=== PATIENT | male | born 1985 | race Caucasian/White ===

== ENCOUNTER 2017-04-07 13:58 | Inpatient (IN) | payer BC, OTHER ==
[~2017-04-07] VITALS: Ht 182.9 cm; Wt 106.6 kg
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
[2017-04-07 15:00] VITALS: BP 145/76
[2017-04-07] MEDS ORDERED: ONDANSETRON 4 MG/2 ML VIAL IM PRN (15:00)
[2017-04-07] MEDS ORDERED: MAG HYDROX/AL HYDROX/SIMETH 30 ML LIQUID UDC PO PRN (15:00)
[2017-04-07] MEDS ORDERED: MIRALAX 17 GM POWD.PACK PO PRN (15:00)
[2017-04-07] MEDS ORDERED: DICYCLOMINE HCL 20 MG TABLET PO PRN (15:00)
[2017-04-07] MEDS ORDERED: LORAZEPAM 2 MG/1 ML VIAL IM PRN (15:00)
[2017-04-07] MEDS ORDERED: LORAZEPAM 1 MG TABLET PO PRN ×2 (15:00)
[2017-04-07] MEDS ORDERED: IBUPROFEN 400 MG TABLET PO PRN (15:00)
[2017-04-07] MEDS ORDERED: diphenhydrAMINE 50 MG CAPSULE PO PRN (15:00)
[2017-04-07] MEDS ORDERED: LOPERAMIDE HCL 2 MG CAPSULE PO PRN ×2 (15:00)
[2017-04-07] MEDS ORDERED: ACETAMINOPHEN 325 MG TABLET PO PRN (15:00)
[2017-04-07] MEDS ORDERED: MAGNESIUM HYDROXIDE 30 ML LIQUID UDC PO PRN (15:00)
[2017-04-07] MEDS ORDERED: ONDANSETRON ODT 4 MG TAB.RAPDIS SL PRN (15:00)
[2017-04-07] MEDS ORDERED: THIAMINE HCL 200 MG/2 ML VIAL IM ONE (15:38)
[2017-04-07 15:54] LABS: *AMPHETAMINE, URINE NEGATIVE (NEGATIVE); *BARBITURATE, URINE NEGATIVE (NEGATIVE); *CANNABINOID, URINE POSITIVE (NEGATIVE); *COCCAINE, URINE NEGATIVE (NEGATIVE); *OPIATE, URINE NEGATIVE (NEGATIVE); *PHENCYCLIDINE SCREEN,URINE NEGATIVE (NEGATIVE)
--- NOTE | 2017-04-07 16:00 | NUR ---
ADMISSION PATIENT IN ROOM 310, VS, SKIN INTACT, STABLE CIWA 6 PATIENT HERE TO DETOX FROM ALCOHOL AND MARIJUANA. UDS OBTAINED AND SENT TO LAB, BLOOD SENT TO LAB. PATIENT COMPLIANT, INSTRUCTED ON RULES OF THE FLOOR , PATIENT STATED UNDERSTANDING BUT WILL NEED REINFORCEMENT HE FORGETS VERY QUICKLY AND MIND WANDERS WHEN YOU ARE TALKING TO HIM. PATIENT STATES HE THINKS HE HAD A SPICE INDUCED SEIZURE LAST YEAR BUT IS NOT QUITE SURE. NO KNOW ALLERGIES, REGULAR DIET. SAFETY MEASURES IN PLACE , BED IN LOW LOCKED POSITION WITH SIDE RAIL UP X 2, WILL CONTINUE TO MONITOR
[2017-04-07 16:04] LABS: BASOPHILS % (AUTO) 0.5 % (0.0-2.0); EOSINOPHILS % (AUTO) 0.1 % (0.0-7.0); HEMATOCRIT 43.7 % (36.7-47.1); HEMOGLOBIN 14.9 g/dL (12.5-16.3); MEAN CORPUSCULAR HEMOGLOBIN 28.5 uug (23.8-33.4); MEAN CORPUSCULAR HGB CONC 34 g/dL (32.5-36.3); MEAN CORPUSCULAR VOLUME 83.8 fL (73.0-96.2); MONOCYTES # (AUTO) 0.4 K/uL (2.0-10.0); MONOCYTES % (AUTO) 9.1 % (0.0-11.0); NEUTROPHILS # (AUTO) 3.4 K/uL (1.8-8.9); NEUTROPHILS % (AUTO) 70.3 % (38.5-71.5); PLATELET COUNT (AUTO) 222 K/uL (152-348); RED BLOOD CELL COUNT(AUTO) 5.22 MIL/uL (4.06-5.63); WHITE BLOOD COUNT (AUTO) 4.9 K/uL (3.6-10.2)
[2017-04-07 16:14] LABS: ALANINE AMINOTRANSFERASE 36 U/L (16-63); ALKALINE PHOSPHATASE 41 U/L (50-136); AMYLASE 49 U/L (25-115); ASPARTATE AMINOTRANSFERASE 22 U/L (15-37); BILIRUBIN,TOTAL 0.4 mg/dL (0.2-1.0); CARBON DIOXIDE 27 mmol/L (21-32); CHLORIDE 102 mmol/L (98-107); GLUCOSE 102 mg/dL (74-106); MAGNESIUM 2.2 mg/dL (1.8-2.4); TOTAL PROTEIN, SERUM 7.7 g/dL (6.4-8.2); UREA NITROGEN, BLOOD 8 mg/dL (7-18)
[2017-04-07 16:26] LABS: ETHANOL < 3 MG/DL (0-0)
[2017-04-07 17:00] VITALS: BP 138/79
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
--- NOTE | 2017-04-07 19:30 | NUR ---
START OF SHIFT Pt is a 31 y/o male admitted on 04/07/17 for ETOH dependence. Pt was dependent on 6-12 beers and 1/2 pint of whiskey daily for the past 1 year. Pt is full code, NKA, regular diet and on fall/seizure precautions. No reported seizure history. Pt reports PMH of chronic neck pain. No ordered taper at this time, PRN Ativan available. Upon assessment pt laying in bed and presents with anxiety, difficulty concentrating, fatigue, dysphoria and anhedonia. Respirations even and unlabored. Denies chest pain or SOB. Medications due. Safety measures in place. Call light within reach. Will continue to monitor.
[2017-04-07 20:00] VITALS: BP 134/84
[2017-04-08] VITALS: BP 113/57
--- NOTE | 2017-04-08 | NUR ---
CIWA DEFERRED Pt is laying in bed with eyes closed, CIWA deferred, to be assessed when pt is awake per orders. Respirations even and unlabored. Safety measures in place. Call light within reach. Will continue to monitor.
[2017-04-08 04:00] VITALS: BP 117/64
--- NOTE | 2017-04-08 07:02 | NUR ---
END OF SHIFT Pt is a 31 y/o male admitted on 04/07/17 for ETOH dependence. Pt was dependent on 6-12 beers and 1/2 pint of whiskey daily for the past 1 year. Pt is full code, NKA, regular diet and on fall/seizure precautions. No reported seizure history. Pt reports PMH of chronic neck pain. No ordered taper at this time, PRN Ativan available. Pt presented with anxiety, difficulty concentrating, fatigue, dysphoria and anhedonia. No scheduled meds ordered and no PRNs administered. Last CIWA 4 at 1999. Pt slept 8 hours. Intake 355 ml, void x 1, stool x 1. Safety measures in place. Call light within reach. Pts needs have been met. Endorsed to day shift nurse.
--- NOTE | 2017-04-08 07:15 | NUR ---
START OF SHIFT Report received from security shift manager nurse. Pt is a 31 y/o male admitted on 04/07/17 for ETOH dependence. Pt is full code, NKA, regular diet and on fall/seizure precautions. No reported seizure history. Pt reports PMH of chronic neck pain. No ordered taper at this time, PRN Ativan available. Pt did not receive any PRN medications during the security shift manager, Pt encouraged to drink fluids to help facilitate with detox process. Last CIWA of 4. All Safety measures in place. Call light within reach. Will continue to monitor.
[2017-04-08 08:00] VITALS: BP 122/64
[2017-04-08] MEDS ORDERED: TUBERCULIN,PURIF.PROT.DERIV. 5 TU/0.1 ML TEST ID ONE (09:00)
[2017-04-08] MEDS: MULTIVITAMINS,THERAPEUTIC TABLET PO SCH (09:15)
[2017-04-08] MEDS: THIAMINE HCL 100 MG TABLET PO SCH (09:16)
[2017-04-08] MEDS: FOLIC ACID 1 MG TABLET PO SCH (09:16)
[2017-04-08] MEDS: OLANZAPINE ZYDIS 5 MG TAB.RAPDIS PO ONE ×2 (09:53→10:21)
--- NOTE | 2017-04-08 10:18 | NUR ---
MD ordered 10 mg of Zyprexa, Offered to pt, Pt refused to take medication stating "im not taking this you guys are trying to poison me" attempted to reorient pt back to reality, educated on risks and benefits x 3 with no success, MD notified and aware, will continue to monitor.
[2017-04-08] MEDS ORDERED: OLANZAPINE ZYDIS 5 MG TAB.RAPDIS PO ONE (10:55)
--- NOTE | 2017-04-08 11:02 | NUR ---
PRN ATIVAN Pt presented with agitation, and anger, was frustrated, reported feeling anxious and irritated, presented with sweats, tremors and panic, CIWA score of 17 upon assessment, Pt received PRN Ativan 2mg, all safety measures in place will continue to monitor.
[2017-04-08 12:00] VITALS: BP 119/77
--- NOTE | 2017-04-08 12:00 | NUR ---
Lupillo from crisis team arrived, spoke with pt, Pt agreed to take medications ordered by MD, medications administered, pt is in stable condition, no hold placed on pt, will continue to monitor.
--- NOTE | 2017-04-08 12:05 | NUR ---
PRN REASSESSMENT Medication effective pt reported feeling much better, CIWA score of 5 all needs me will continue to monitor
--- NOTE | 2017-04-08 15:43 | NUR ---
Assumed Care: Assumed care for the patient at this time. All pertinent information discussed. PRN Zyprexa and Ativan given as ordered. Last CIWA 5. Will continue to monitor.
[2017-04-08 16:00] VITALS: BP 97/61
--- NOTE | 2017-04-08 17:58 | NUR ---
Psych MD Communication: Obtained orders from Dr. Bonilla for patient to have Zyprexa Zydis 5 mg PO Q4H PRN for agitation and Haldol 5 mg liquid PO Q4H PRN for severe agitation. is driving and is unable to enter in orders at this time. Orders noted and carried out.
[2017-04-08] MEDS ORDERED: HALOPERIDOL LACTATE 10 MG/5 ML ORAL SOLUTION UDC PO PRN (18:00)
--- NOTE | 2017-04-08 19:03 | NUR ---
End of Shift Notes: Patient will be discharging tomorrow. Withdrawal symptoms were closely monitored. Initial CIWA in AM 17, medicated patient with Zyprexa Zydis 10 mg PO and Ativan 2 mg PO due to aggression, paranoia, sweating, tremors, and appears to have a panic attack. Last CIWA 3. Crisis Team gila done, no 5150 hold at this time. No AV hallucinations noted. No S/I or H/I noted. Requires encouragement to participate in group and activities. All needs met and attended. Will continue to monitor closely. Addendum: 04/08/17 at 1911 by JONA ORTIZ LVN Patient will not be discharging tomorrow.
--- NOTE | 2017-04-08 19:15 | NUR ---
Start of shift note Received report from day shift nurse. Pt is a 31 yo male, A+Ox4, presenting to [facility] for ETOH/Marijuana/Spice dependence. Pt has NKA, is on Full coed status, and on Regular diet. Pt is on Fall and Seizure precautions. Pt has HX of broken neck. Pt is on PRN medications, tolerated well. No s/s of distress noted at this time. Respirations even and unlabored. Will continue to monitor.
[2017-04-08 20:11] VITALS: BP 100/66
[2017-04-09 00:13] VITALS: BP 108/68
[2017-04-09 04:38] VITALS: BP 104/72
--- NOTE | 2017-04-09 06:51 | NUR ---
End of shift note Pt is a 31 yo male, A+Ox4, presenting to [facility] for ETOH/Marijuana/Spice dependence. Pt has NKA, is on Full coed status, and on Regular diet. Pt is on Fall and Seizure precautions. Pt has HX of broken neck. Pt is on PRN medications, tolerated well. Pt slept for a total of 9 HRS. Last CIWA: 2 @0400. No s/s of distress noted at this time. Respirations even and unlabored. Will endorse to day shift nurse.
--- NOTE | 2017-04-09 07:05 | NUR ---
Start of Shift Notes: Endorsement received from night nurse. Patient is a 31 year old male admitted for ETOH dependence who is currently on PRNs at this time. Has medical injury of broken neck. NKA. FULL CODE. Regular diet. Alert and oriented x 4. Verbally responsive. Noted to be pacing around the hallways. Demanding for a phone call. Notified patient that his name will be first on the list for phone calls. Requires constant reassurance. Respirations even and unlabored. No SOB noted. Skin warm and dry to touch. Abdomen soft and non-distended. BS (+) in all 4 quadrants. No complains of N/V/D or constipation noted. Bladder soft and non-distended. Voids independently. Ambulatory ad ronak with steady gait.
[2017-04-09] MEDS: CLONIDINE HCL 0.1 MG TABLET PO PRN ×2 (07:59→20:17)
--- NOTE | 2017-04-09 07:59 | NUR ---
Clonidine 0.1mg PO given/Zyprexa Zydis 5mg: Patient appears agitated and requires constant reassurance and redirection due to paranoia. BP 174/94, Pulse 110. Noted to be pacing along the hallway. Appears agitated. Phone call to his brother was facilitated by RESEARCH PROGRAM ASSISTANT weatherization operations manager with help but continues to be paranoid. Patient believes that he is being poisoned and that other people are out to get him. Redirection and reorientation provided constantly. Encouraged patient to express his feelings and concerns. Medicated patient with Clonidine and Zyprexa Zydis 5 mg as ordered. CIWA 9 due to moderate anxiety and agitation. Will monitor for effectiveness.
[2017-04-09 08:00] VITALS: BP 174/94
[2017-04-09] MEDS: MULTIVITAMINS,THERAPEUTIC TABLET PO SCH (08:01)
[2017-04-09] MEDS: THIAMINE HCL 100 MG TABLET PO SCH (08:01)
[2017-04-09] MEDS: FOLIC ACID 1 MG TABLET PO SCH (08:02)
[2017-04-09 08:06] LABS: HEPATITIS B SURFACE AG Negative (Negative)
[2017-04-09] MEDS: OLANZAPINE ZYDIS 5 MG TAB.RAPDIS PO PRN ×4 (08:11→20:18)
--- NOTE | 2017-04-09 08:59 | NUR ---
Re-assessment: Clonidine/Zyprexa Patient's blood pressure 140/89. Pulse 90. Appears less anxious, less tense and less agitated. Continue with mild paranoid behavior thinking that people are out to kidnap him. Redirected and reassured by staff. Encouraged to attend group and activities.
[2017-04-09] MEDS ORDERED: HYDROXYZINE PAMOATE 25 MG CAPSULE PO PRN (11:30)
[2017-04-09 12:00] VITALS: BP 149/95
--- NOTE | 2017-04-09 12:10 | NUR ---
Vistaril 25 mg/Zyprexa Zydis 5 mg given: Patient's noted to be pacing in his room, walking in and out of his room and into the hallways. Noted with clenched fist while walking. Asked patient, if he needed anything. Patient stated "I'm so anxious about leaving and discharge cause people are going to kidnap me." Reality orientation provided. Explained to the patient that he is in a safe place and will not be harmed during his stay here. Patient appears to be agitated. Reassurance and redirection provided. Encouraged patient to verbalize his feelings and concerns but with no help. Pulse 104. Medicated patient with Vistaril 25 mg PO and Zyprexa Zydis 5 mg as ordered.
--- NOTE | 2017-04-09 13:10 | NUR ---
Re-assessment: Vistaril/Zyprexa Patient appears to be more at east at this time. He is currently in his room laying down. Patient states that PRN Vistaril and Zyprexa were effective in reducing patient's anxiety and agitation.
[2017-04-09 16:00] VITALS: BP 117/72
--- NOTE | 2017-04-09 19:01 | NUR ---
End of Shift Notes: Patient will be discharging tomorrow. Withdrawal symptoms were closely monitored. Initial CIWA 9, patient presented with anxiety and agitation. Medicated patient with Zyprexa Zydis 5mg PO and Clonidine 0.1mg PO for BP 174/94 with help after 1 hour. At 1210, patient was noted with moderate anxiety and agitation. Medicated patient with Zyprexa Zydis 5 mg PO and Vistaril 25 mg PO as ordered with help after 1 hour. Last CIWA 3. No AV hallucinations noted. No S/I or H/I noted. Patient continues with paranoid behavior. Requires encouragement to participate in group and activities. All needs met and attended. Will continue to monitor closely
--- NOTE | 2017-04-09 19:10 | NUR ---
Start of shift note Received report from day shift nurse. Pt is a 31 yo male, A+Ox4, presenting to [facility] for ETOH/Marijuana/Spice dependence. Pt has NKA, is on Full coed status, and on Regular diet. Pt is on Fall and Seizure precautions. Pt has HX of broken neck. Pt is on PRN medications, tolerated well, and is due for discharge tomorrow. No s/s of distress noted at this time. Respirations even and unlabored. Will continue to monitor.
[2017-04-09 20:11] VITALS: BP 153/102
[2017-04-09] MEDS ORDERED: HYDR-3895 PO (20:17)
[2017-04-09] MEDS ORDERED: DIPH50CA37 PO (20:17)
--- NOTE | 2017-04-09 20:18 | NUR ---
PRN Clonidine and Zyprexa Pt noted with B/P 152/102 and agitation. PRN Clonidine and Zyprexa given and tolerated well. Will reassess within 1 HR. Will continue to monitor.
--- NOTE | 2017-04-09 20:45 | NUR ---
PRN Clonidine and Zyprexa Reassessment Medications effective. B/P 140/91 and Pt expresses reduction in agitation and is resting well in bed. No s/s of ASE/distress noted at this time. Respirations even and unlabored. Will continue to monitor.
[2017-04-10 00:55] VITALS: BP 144/89
[2017-04-10 04:21] VITALS: BP 137/84
--- NOTE | 2017-04-10 07:00 | NUR ---
End of shift note Pt is a 31 yo male, A+Ox4, presenting to [facility] for ETOH/Marijuana/Spice dependence. Pt has NKA, is on Full coed status, and on Regular diet. Pt is on Fall and Seizure precautions. Pt has HX of broken neck. Pt is on PRN medications, tolerated well, and is due for discharge today. Pt was given PRN Clonidine and Zyprexa @2018. Pt slept for a total of 7 HRS. Last CIWA: 3 @0400. No s/s of distress noted at this time. Respirations even and unlabored. Will endorse to day shift nurse.
--- NOTE | 2017-04-10 07:18 | NUR ---
Start of Shift Notes: Endorsement received from night nurse. Patient is a 31 year old male admitted for ETOH dependence who is currently on PRNs at this time. Has medical injury of broken neck. NKA. FULL CODE. Regular diet. Alert and oriented x 4. Verbally responsive. Requires constant reassurance. Respirations even and unlabored. No SOB noted. Skin warm and dry to touch. Abdomen soft and non-distended. BS (+) in all 4 quadrants. No complains of N/V/D or constipation noted. Bladder soft and non-distended. Voids independently. Ambulatory ad ronak with steady gait. Patient will be discharging today. Educated patient on the discharge process. Will continue to monitor.
[2017-04-10] MEDS: THIAMINE HCL 100 MG TABLET PO SCH (07:58)
[2017-04-10] MEDS: CLONIDINE HCL 0.1 MG TABLET PO PRN (07:58)
[2017-04-10] MEDS: MULTIVITAMINS,THERAPEUTIC TABLET PO SCH (07:58)
[2017-04-10] MEDS: OLANZAPINE ZYDIS 5 MG TAB.RAPDIS PO PRN (07:58)
[2017-04-10] MEDS: FOLIC ACID 1 MG TABLET PO SCH (07:58)
--- NOTE | 2017-04-10 07:58 | NUR ---
Clonidine 0.1mg PO given/Zyprexa Zydis 5mg: Patient appears agitated and requires constant reassurance and redirection due to paranoia. BP 146/94, Pulse 92. Noted to be pacing along the hallway. Appears agitated. Demanded for a phone call to his brother was facilitated by STEEL SASH ERECTOR site project manager with help but continues to be paranoid. Stating "The same thing will happen again, I'm going to be kidnapped." Redirection and reorientation provided constantly. Encouraged patient to express his feelings and concerns. Medicated patient with Clonidine and Zyprexa Zydis 5 mg as ordered. CIWA 7 due to moderate anxiety and agitation. Will monitor for effectiveness.
--- NOTE | 2017-04-10 07:58 | NUR ---
All 0900 med early administration: Patient will be discharging today at 0830. Preferred to take his 0900 meds at this time. Notified MD. Per , ok to give at this time.
[2017-04-10 08:00] VITALS: BP 145/94
--- NOTE | 2017-04-10 08:30 | NUR ---
Re-assessment/Discharged: Patient's BP 135/88. Less anxiousness and less agitation noted. Pulse 87. PRN Clondine and Zyprexa Zydis was effective. Patient education provided regarding his discharge instructions. Patient verbalized understanding. Patient was picked up today by his mom to be transported to [facility]. All dc instructions, paperwork and prescription were provided to the patient. Patient left in stable condition.
== END 2017-04-10 09:27 | DRG 895 ==
LOC: SRC 13:58
PROVIDERS: ADMIT Internal Medicine; ATTEND Internal Medicine
PROC: HZ2ZZZZ Detoxification Services for Substance Abuse Treatment (ICD-10-PCS; principal; 2017-04-07)
PROC: HZ41ZZZ Group Counseling for Substance Abuse Treatment, Behavioral (ICD-10-PCS; 2017-04-09)
DX: F10.230 Alcohol dependence with withdrawal, uncomplicated (principal); F12.951 Cannabis use, unspecified with psychotic disorder with hallucinations; I15.9 Secondary hypertension, unspecified; Y90.9 Presence of alcohol in blood, level not specified; F17.220 Nicotine dependence, chewing tobacco, uncomplicated; F41.1 Generalized anxiety disorder; R48.0 Dyslexia and alexia; F43.10 Post-traumatic stress disorder, unspecified; H93.25 Central auditory processing disorder; M54.12 Radiculopathy, cervical region; Z81.1 Family history of alcohol abuse and dependence; Z82.49 Family history of ischemic heart disease and other diseases of the circulatory system; Z82.0 Family history of epilepsy and other diseases of the nervous system
CPT/HCPCS: 36415; 70030-TC; 80307; 80349; 83735; 85025; 86592; 86705; 86803; 87340; 87806; G0480; J3411